=== PATIENT | female | born 2000 | race Caucasian/White ===

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

== ENCOUNTER 2021-05-05 11:38 | Emergency (ER) | payer OTHER ==
[~2021-05-05] VITALS: Ht 170.2 cm; Wt 104.2 kg
[~2021-05-05 11:38] MED LIST changes: +CLIN-95 PO; -CLIN300C8 PO; +HYDR-1179 PO; +HYDR-3165 PO; -HYDR-79 PO; -HYDR-971 PO
--- NOTE | 2021-05-05 12:05 | PHYS DOC ---
Past History Past Medical History: Depression, Other Past Surgical History: Appendectomy, Tonsillectomy, Other Additional Past Surgical Histo: breast reduction Smoking: Non-smoker Alcohol Use: Occasionally Drug Use: None General Adult EDM: Chief Complaint: SHORTNESS OF BREATH HPI: HPI: Patient is a 21-year-old female coming in for 3 days of nonproductive cough. Also complaining of generalized chest pain. Denies any fevers or GI complaints. Was vaccinated for Covid with her Pfizer vaccine in August, has not had her booster or influenza vaccine Review of Systems: Review of Systems: All other systems within normal limits except for as noted in the HPI Allergies: Allergies: Allergies Coded Allergies Type Severity Reaction Last Updated Verified No Known Drug Allergies 02/12/15 No Physical Exam: PE: Constitutional: Well developed, well nourished, no acute distress, non-toxic appearance. [] HENT: Normocephalic, atraumatic, bilateral external ears normal, nose normal. [] Eyes: PERRLA, conjunctiva normal, no discharge. [] Neck: No rigidity, supple, no stridor. [] Cardiovascular: Regular rate and rhythm, brisk cap refill [] Lungs & Thorax: Non labored symmetric respirations, no tachypnea or respiratory distress [] Abdomen: Soft, nondistended. Skin: Warm, dry, no erythema, no rash. [] Back: Unremarkable Extremities: No deformities, range of motion grossly intact, no lower extremity edema [] Neurologic: Alert and oriented X 3, no focal deficits noted. [] Psychologic: Affect normal, judgement normal, mood normal. [] Current Patient Data: Vital Signs: Vital Signs Date Time Temp Pulse Resp B/P (MAP) Pulse Ox O2 Delivery O2 Flow Rate FiO2 05/05/21 11:47 98.6 89 16 114/74 (87) 98 Room Air EKG: EKG: [] Radiology/Procedures: Radiology/Procedures: [address] [address] IMAGING REPORT Signed PATIENT: BRIANNA BOWEN ACCOUNT: [id number] : 10/31/1997 LOCATION: ER AGE: 23 SEX: F EXAM STATUS: REG ER ORD. PHYSICIAN: GARY LYMAN MD REASON: LEFT SHOULDER INJURY PROCEDURE: SHOULDER 2+V LEFT EXAMINATION: Left shoulder radiograph. VIEWS: 3 COMPARISON: None INDICATION:23 years, Female, left shoulder injury. FINDINGS: No acute fracture, dislocation or subluxation. No soft tissue swelling. Visualized lungs are unremarkable. IMPRESSION: No acute osseous process. Electronically signed by: Gurjit Cuellar MD (05/05/2021 12:10 PM) [id number] DICTATED AND SIGNED BY: GURJIT CUELLAR MD DATE: 05/05/21 1209 CC: GARY LYMAN MD; PCP,UNKNOWN ~MTH0 0 [] Heart Score: C/O Chest Pain: N/A Risk Factors: Risk Factors: DM, Current or recent (<one month) smoker, HTN, HLP, family history of CAD, obesity. Risk Scores: Score 0 - 3: 2.5% MACE over next 6 weeks - Discharge Home Score 4 - 6: 20.3% MACE over next 6 weeks - Admit for Clinical Observation Score 7 - 10: 72.7% MACE over next 6 weeks - Early Invasive Strategies Course & Med Decision Making: Course & Med Decision Making Pertinent Labs and Imaging studies reviewed. (See chart for details) [] Dragon Disclaimer: Dragon Disclaimer: This electronic medical record was generated, in whole or in part, using a voice recognition dictation system. Departure Departure: Impression: Primary Impression: Person under investigation for COVID-19 Additional Impression: Bronchitis Disposition: HOME / SELF CARE / HOMELESS Condition: STABLE Referrals: PCP,NO (PCP) Patient Instructions: Acute Bronchitis Scripts Albuterol Sulfate (PROAIR HFA INHALER) 8.5 Gm Hfa.aer.ad 1 PUFF INH PRN Q6HRS PRN for SHORTNESS OF BREATH, #1 EACH 0 Refills Prov: GARY LYMAN MD 05/05/21 Prednisone (PREDNISONE) 50 Mg Tablet 1 TAB PO DAILY for steroid for 5 Days, #5 TAB Prov: GARY LYMAN MD 05/05/21 GARY LYMAN MD May 05, 2021 12:05
[2021-05-05 12:47] LABS: INFLUENZA A PATIENT NEGATIVE (NEGATIVE); INFLUENZA B PATIENT NEGATIVE (NEGATIVE)
--- NOTE | 2021-05-05 13:04 | RAD ---
EXAMINATION: Chest radiograph. VIEWS: 1 COMPARISON: None. INDICATION:21 years, Female, cough. FINDINGS: Normal cardiomediastinal silhouette. No focal consolidation. No pleural effusion or pneumothorax. No acute osseous process. IMPRESSION: No acute cardiopulmonary process. Electronically signed by: Gurjit Cuellar MD (05/05/2021 1:02 PM) [id number]
[2021-05-05] MEDS ORDERED: PRED50TA PO (13:16)
[2021-05-05] MEDS ORDERED: ALBU2.5V8 INH (13:16)
[2021-05-05 13:32] VITALS: BP 99/61
== END 2021-05-05 13:33 | disposition home or self-care (01) ==
LOC: ER 11:38
DX: J40 Bronchitis, not specified as acute or chronic (principal); Z20.822 Contact with and (suspected) exposure to COVID-19
CPT/HCPCS: 71045; 87804; 99284; C9803; U0003